=== PATIENT | male | born 1995 | race Caucasian/White ===

== ENCOUNTER 2022-01-21 22:13 | Emergency (ER) | payer SELFPAY ==
[2022-01-21 22:15] VITALS: O2SAT 99
[2022-01-21 22:54] VITALS: BP 172/98; PULSE 78; RESP 18; TEMP 36.7; O2SAT 99; BMI 23.5
--- NOTE | 2022-01-21 22:58 | CRLHL7_ITS ---
For Patients: As a result of the Cures Act, medical imaging exams and procedure reports are released immediately into your electronic medical record. You may view this report before your referring provider. If you have questions, please contact your health care provider. INDICATION: Chest pain, shortness of breath TECHNIQUE: Chest radiograph 1 view COMPARISON: None FINDINGS: Mediastinum: The mediastinum is normal in appearance. The heart silhouette is normal in size and morphology. Lung: Both lungs are unremarkable in appearance. No sign of pleural effusion seen. No pneumothorax is identified. Bone and Soft tissue: Unremarkable for age. IMPRESSION: 1. No acute cardiopulmonary disease is seen. Dictated by: Carlitos Jeff MD @ 01/21/2022 23:36:57 (Electronically Signed)
[2022-01-21 23:29] LABS: Basophils Absolute Auto 0.02 K/uL (0.00-0.30); Basophils Percent Auto 0.2 % (0.0-3.0); Eosinophils Absolute Auto 0.09 K/uL (0.00-0.50); Eosinophils Percent Auto 0.9 % (0.0-7.0); Hematocrit 42.7 % (37.0-53.0); Hemoglobin* 14.9 gm/dL (13.5-17.5); Immature Granulocytes Abs Auto 0.01 K/uL (0.00-0.30); Immature Granulocytes Pct Auto 0.1 %; Lymphocytes Percent Auto 25.1 % (20-44); Mean Corpuscular HGB Conc 35 gm/dL (32-36); Mean Corpuscular Hemoglobin 31 pg (26-34); Mean Corpuscular Volume 90 fL (80-100); Monocytes Percent Auto 6.6 % (0.0-11.0); Neutrophils Absolute Auto 6.41 K/uL (1.7-7.0); Neutrophils Percent Auto 67.1 % (42.0-72.0); Platelet Count* 285 K/uL (140-440); RDW Coefficient of Variation % 11.6 % (11.5-15.5); Red Blood Count 4.76 m/uL (4.30-5.90); White Blood Count* 9.56 K/uL (4.50-11.00)
[2022-01-21 23:34] LABS: Slide Review Reflex No
[2022-01-21 23:43] LABS: Chloride* 105 mmol/L (96-114); Potassium* 4.3 mmol/L (3.6-5.1); Sodium* 140 mmol/L (135-149)
[2022-01-21 23:46] LABS: Blood Urea Nitrogen* 10 mg/dL (5-24); Carbon Dioxide* 26 mmol/L (20-32); Creatinine* 0.7 mg/dL (0.5-1.5); Est. Creatinine Clearance* 154.71; Estimated Glomerular Filt Rate 130 ml/min; Glucose* 110 mg/dL (60-115)
[2022-01-21 23:47] LABS: Calcium* 9.7 mg/dL (8.4-10.6)
[2022-01-22] LABS: Troponin I* < 0.01 ng/mL (0.01-0.04)
[2022-01-22 00:01] LABS: D Dimer Quantitative* < 0.27 ug/ml (0.00-0.50)
--- NOTE | 2022-01-22 00:26 | ED.SOB ---
HPI - SOB/Dyspnea General Chief Complaint: Shortness of Breath/Dyspnea Stated Complaint: Chest Pain Time Seen by Provider: 01/21/22 22:54 History of Present Illness HPI Narrative: Pt is a 26 year old gentleman who used nasal cocaine for the first time last night. Since that time he has felt anxious and sob. Pt has not had chest pain. No nausea vomiting diuresis, fever or chills. Pt otherwise is in his usally state of health. SOB is persistent and not associated with activity. Pt otherwise is in his usual state of health. No cough or sputum production. Related Data Home Medications Medication Instructions Recorded Confirmed No Known Home Medications 01/21/22 01/21/22 Allergies Allergy/AdvReac Type Severity Reaction Status Date / Time No Known Drug Allergies Allergy Verified 01/21/22 22:57 Review of Systems Status of ROS: Reports: 10 or more systems reviewed and unremarkable except as noted in History and below [facility] Medical History No significant past medical history Surgical History No significant past surgical history Social History Smoking Status: Current some day smoker Do you use any of these nicotine containing products: None Second hand tobacco smoke exposure: Yes How often do you have a drink containing alcohol: monthly or less How often do you have six or more drinks on one occasion: Never AUDIT-C Alcohol total score: 1 Non-prescribed substance use: denies use Exam Narrative: Exam Narrative: EXAM GENERAL: Patient appears comfortable and well. EYES: No scleral icterus. ENT: Tympanic membranes and oropharynx normal. THYROID: no thyroid nodules or thyromegaly. LYMPH: No supraclavicular or cervical lymphadenopathy. SKIN: Visible skin seen during exam normal or with benign process only. EXT: No dependent lower extremity pedal edema. HEART: Regular rate and rhythm with no murmurs, rubs, or gallops. LUNGS: Clear to auscultation bilaterally with no crackles or wheezes. ABD: Soft, non tender, non distended. PSYCH: Good eye contact, speech is not pressured. Const: Vital Signs, click to edit/add: Vital Signs - 24 hr 01/21/22 22:54 Temperature 98.0 F Pulse Rate [Right Pulse Oximeter] 78 Respiratory Rate 18 Blood Pressure [Ri ght Upper Arm] 172/98 H Pulse Oximetry 99 Oxygen Delivery Me thod Room Air Course Course Hospital Course: Pt seen and examined. Troponin, CBC, D dimer, EKG and chest x ray ordered and reviewed by me as normal. Vital Signs Vital signs: Initial Vital Signs Temperature 98.0 F 01/21/22 22:54 Temperature Source Temporal Artery Scan 01/21/22 22:54 Pulse Rate 78 01/21/22 22:54 Respiratory Rate 18 01/21/22 22:54 Blood Pressure 172/98 H 01/21/22 22:54 Blood Pressure Mean 122 01/21/22 22:54 Blood Pressure Position Sitting 01/21/22 22:54 Pulse Oximetry 99 01/21/22 22:54 Oxygen Delivery Method 01/21/22 22:54 Vital Signs Temperature 98.0 F 01/21/22 22:54 Pulse Rate 78 01/21/22 22:54 Respiratory Rate 18 01/21/22 22:54 Blood Pressure 172/98 H 01/21/22 22:54 Pulse Oximetry 99 01/21/22 22:54 Oxygen Delivery Method 01/21/22 22:54 Temperature 98.0 F 01/21/22 22:54 Pulse Rate 78 01/21/22 22:54 Respiratory Rate 18 01/21/22 22:54 Blood Pressure 172/98 H 01/21/22 22:54 Pulse Oximetry 99 01/21/22 22:54 Oxygen Delivery Method 01/21/22 22:54 MDM - SOB/Dyspnea MDM Narrative Medical decision making narrative: Pt who used cocaine for the first time presents with anxiety and sob. Workup as above normal. Reassurance offered. Warned pt as to the danger of illicit drug use. Differential Diagnosis Differential diagnosis: Likely congestive heart failure, asthma with exacerbation and pulmonary embolism Lab Data Labs: Lab Results 01/21/22 01/21/22 01/21/22 Range/Units 23:22 23:22 23:22 WBC 9.56 (4.50-11.00) K/uL RBC 4.76 (4.30-5.90) m/uL Hgb 14.9 (13.5-17.5) gm/dL Hct 42.7 (37.0-53.0) % MCV 90 (80-100) fL MCH 31 (26-34) pg MCHC 35 (32-36) gm/dL RDW Coeff of Reese 11.6 (11.5-15.5) % Plt Count 285 (140-440) K/uL Neut % (Auto) 67.1 (42.0-72.0) % Lymph % (Auto) 25.1 (20-44) % Jones % (Auto) 6.6 (0.0-11.0) % Eos % (Auto) 0.9 (0.0-7.0) % Baso % (Auto) 0.2 (0.0-3.0) % Neut # (Auto) 6.41 (1.7-7.0) K/uL Lymph # (Auto) 2.40 (0.90-2.90) K/uL Jones # (Auto) 0.60 (0.00-0.90) K/UL Eos # (Auto) 0.09 (0.00-0.50) K/uL Baso # (Auto) 0.02 (0.00-0.30) K/uL Abs Immat Gran (auto) 0.01 (0.00-0.30) K/uL Imm/Tot Granulo (auto) 0.1 % D-Dimer Quant (PE/DVT) < 0.27 (0.00-0.50) ug/ml Sodium 140 (135-149) mmol/L Potassium 4.3 (3.6-5.1) mmol/L Chloride 105 (96-114) mmol/L Carbon Dioxide 26 (20-32) mmol/L BUN 10 (5-24) mg/dL Creatinine 0.7 (0.5-1.5) mg/dL Estimated Creat Clear 154.71 Estimated GFR 130 ml/min Glucose 110 (60-115) mg/dL Calcium 9.7 (8.4-10.6) mg/dL Troponin I < 0.01 L (0.01-0.04) ng/mL Discharge Plan Discharge Clinical Impression: Cocaine use Patient Disposition: Home, Self-Care Condition: Stable Instructions: Cocaine Abuse (ED) Additional Instructions: No more cocaine Activity Level: No Restrictions Discharge Diet: Regular Prescriptions: No Action No Known Home Medications Stand Alone Forms: [employer] Info Instructions
[2022-01-22 00:41] VITALS: BP 165/84; PULSE 74; RESP 18; TEMP 36.4; O2SAT 99
[2022-01-22 00:43] VITALS: BP 165/84; PULSE 74; RESP 18; TEMP 36.4
== END 2022-01-22 00:50 | disposition home or self-care (01) ==
LOC: ED 01-22 00:32
PROVIDERS: Emergency Provider Internal Medicine
DX: R06.02 Shortness of breath (principal); F14.99 Cocaine use, unspecified with unspecified cocaine-induced disorder
CPT/HCPCS: 36415; 71045; 80048; 84484; 85025; 85379; 93005; 94761; 99283; 99284; 99285